=== PATIENT | female | born 1995 | race African-American/Black ===

== ENCOUNTER 2020-12-28 04:58 | Emergency (ER) | payer OTHER, SELFPAY ==
--- NOTE | ~2020-12-28 | CT_ITS ---
EXAMINATION: CT abdomen pelvis w con DATE: 12/28/2020 06:06 INDICATION: Abdominal pain. TECHNIQUE: Computed tomography (CT) of the abdomen and pelvis was performed with 100 mL Omnipaque-350 intravenous contrast. Automated exposure control and iterative reconstruction technique were employe d. The dose-length product was 183.13 mGy-cm. COMPARISON: None FINDINGS: Lung bases are clear. Heart size is normal. No pericardial or pleural effusion. Mild periportal edema . The liver. Gallbladder, spleen, pancreas, bilateral adrenal glands and left kidney are normal. Ther e is partially degraded right renal collecting system. Bladder is normal. Endometrial complex and the anteverted uterus measures 9 mm in thickness. 2.4 cm right adnexal cyst. Left adnexa is unremarkable . The appendix is not visualized. No pericecal inflammatory change to suggest acute appendicitis. No bowel obstruction. No free intraperitoneal gas or fluid. No pathologically enlarged abdominal or pelv ic lymphadenopathy. Mild lumbar dextrocurvature. IMPRESSION: 1. Nonspecific periportal edema. Liver which can be due to hepatitis, cholangitis, right heart failur e or secondary to cardiac congestion, overhydration/fluid resuscitation. Reviewed, dictated and finalized at location A. IMPRESSION: 1. Nonspecific periportal edema. Liver which can be due to hepatitis, cholangit is, right heart failure or secondary to cardiac congestion, overhydration/fluid resuscitation.
[2020-12-28 05:02] VITALS: BP 129/71; PULSE 95; RESP 16; TEMP 36.5; O2SAT 98
[2020-12-28] MEDS: SODIUM CHLORIDE 0.9% IV 1,000 ML 999 ML IV CONT (05:16)
[2020-12-28] MEDS: ONDANSETRON INJ 4 MG/2 ML VIAL IV PUSH (05:16)
[2020-12-28] MEDS: SODIUM CHLORIDE 0.9% IV 2,000 ML 999 ML IV CONT (05:17)
[2020-12-28 05:29] LABS: Basophils Percent Auto 0.6 % (0.2-1.2); Eosinophils Absolute Auto 0.4 K/mm3 (0-0.3); Eosinophils Percent Auto 6.7 % (0-4.4); Hemoglobin 11.4 g/dL (12.0-15.0); Immature Granulocyte Absolute 0.02 K/mm3 (0.00-0.031); Immature Granulocyte Percent A 0.3 % (0-0.5); Lymphocytes Absolute Auto 2.26 K/mm3 (0.9-3.2); Lymphocytes Percent Auto 34.2 % (18.3-44.2); Mean Corpuscular HGB Conc 32.6 g/dl (32-36); Mean Corpuscular Volume 89.1 fl (80-100); Mean Platelet Volume 10.5 fl (7.4-10.4); Monocytes Absolute Auto 0.4 K/mm3 (0.1-0.6); Monocytes Percent Auto 6.2 % (2.6-8.5); Neutrophils Absolute Auto 3.4 K/mm3 (1.3-6.7); Platelet Count Result 219 k/mm3 (150-375); Red Blood Count 3.93 M/mm3 (4.2-5.4); Red Cell Distribution Width 14.4 % (11.5-14.5); White Blood Count 6.6 K/mm3 (4.5-10.0)
[2020-12-28 05:41] LABS: Add Urine Microscopic? YES; Appearance Urine Cloudy (Clear); Bilirubin Urine Negative (Negative); Blood Urine Negative (Negative); Color Urine Yellow (Yellow); Glucose Urine UA Negative (Negative); Ketones Urine Negative (Negative); Leukocyte Esterase Ur Negative LEU/UL (Negative); Mucus Urine Few /lpf; Nitrate Urine Negative (Negative); Protein Urine 1+ mg/dL (Negative); RBC Urine 0-2 /hpf (0-2); Specific Grav Ur 1.027 (1.001-1.035); Squamous Epithelial Cell Urine Many /hpf (Few); Urobilinogen Urine Negative mg/dL (<2.0); WBC Urine 0-3 /hpf
[2020-12-28] MEDS: MORPHINE SULFATE (*CRX) 4 MG/ML INJ IV PUSH (05:47)
[2020-12-28 05:51] LABS: Alanine Aminotransferase 16 U/L (4-35); Albumin Level 5.1 g/dL (3.5-5.1); Alkaline Phosphatase 54 U/L (38-126); Anion Gap 11 mmol/L (8-16); Aspartate Amino Transferase 30 U/L (14-36); Bilirubin,Total 0.6 mg/dL (0.2-1.3); Blood Urea Nitrogen 16 mg/dL (7-17); Calcium 9.5 mg/dL (8.4-10.2); Carbon Dioxide 23 mmol/L (22-30); Chloride 106 mmol/L (98-107); Estimated CRCL calculation 92 ml/min; Estimated Glomerular Filt Rate > 60; Glucose 118 mg/dL (65-105); Lipase 66 U/L (23-300); Potassium 4.2 mmol/L (3.4-5.0); Sodium 140 mmol/L (137-145)
--- NOTE | 2020-12-28 05:57 | ED.GENADULT ---
HPI - General Adult General Chief complaint: Nausea/Vomiting/Diarrhea Stated complaint: n/v Time Seen by Provider: 12/28/20 05:09 Source: patient Mode of arrival: ambulatory Limitations: clinical condition History of Present Illness HPI narrative: Patient is 25 years old -Swiss female presents with lower abdominal spasms/cramps, decreased appetite, nausea and intermittent vomiting, chills started 2 days ago. Patient denies any fever, headache, respiratory symptoms, or close contact with anybody having similar symptoms. Patient denies history of abdominal surgery. Last menstrual. Few days ago. Patient denies any urinary symptoms, vaginal bleeding or discharge. History of asthma Related Data Allergies Allergy/AdvReac Type Severity Reaction Status Date / Time Sulfa (Sulfonamide Allergy Unknown Verified 12/28/20 05:11 Antibiotics) Review of Systems Review of Systems: Narrative: CONSTITUTIONAL: Denies fever, chills, or sweats. EYES: Denies visual changes, redness, or discharge. ENT: Denies rhinorrhea, congestion, sore throat, or otalgia. CARDIOVASCULAR: Denies chest pain, palpitations, or edema. RESPIRATORY: Denies cough or dyspnea. GASTROINTESTINAL: Denies abdominal pain, nausea, vomiting, or diarrhea. GENITOURINARY: Denies dysuria or hematuria. SKIN: Denies rash or itching. MUSCULOSKELETAL: Denies back pain, joint pain, or myalgia. NEUROLOGIC: Denies headache, numbness, or weakness. PSYCHIATRIC: Denies anxiety or depression. Exam Narrative: Exam Narrative: General appearance: Well-developed, well-nourished Skin: Normal color Head: Normocephalic, nontraumatic Eyes: Clear conjunctiva ENT: Oropharynx normal, ears normal, nose normal Neck: Supple, nontender Chest and respiratory: Airway patent, no respiratory distress, no accessory muscle use Heart: Regular rate/rhythm Abdomen: Soft, moderate tenderness right mid abdomen, no organomegaly, quiet bowel sounds Vascular: Normal peripheral pulses, normal capillary refill. Musculoskeletal: Normal range of motion, nontender back Neurologic: Alert and oriented ?3, [employer] is normal as tested, no gross motor deficit Course Course Emergency Course: Improving Vital Signs Vital signs: Vital Signs Temperature 36.5 C 12/28/20 05:02 Pulse Rate 95 12/28/20 05:02 Respiratory Rate 16 12/28/20 05:02 Blood Pressure 129/71 12/28/20 05:02 Pulse Oximetry 98 12/28/20 05:02 Temperature 36.5 C 12/28/20 05:02 Pulse Rate 95 12/28/20 05:02 Respiratory Rate 16 12/28/20 05:02 Blood Pressure 129/71 12/28/20 05:02 Pulse Oximetry 98 12/28/20 05:02 Medical Decision Making MDM Narrative Medical decision making narrative: Appendicitis, urinary tract infection, constipation, stress related, viral infection are my concern. Labs, IV fluid, CT abdomen pelvis with IV contrast ordered. Differential Diagnosis Differential Diagnosis: Appendicitis, viral infection, stress related symptoms, constipation, urinary tract infection Vital Signs Vital Signs: Vital Signs Temperature 36.5 C 12/28/20 05:02 Pulse Rate 95 12/28/20 05:02 Respiratory Rate 16 12/28/20 05:02 Blood Pressure 129/71 12/28/20 05:02 Pulse Oximetry 98 12/28/20 05:02 Temperature 36.5 C 12/28/20 05:02 Pulse Rate 95 12/28/20 05:02 Respiratory Rate 16 12/28/20 05:02 Blood Pressure 129/71 12/28/20 05:02 Pulse Oximetry 98 12/28/20 05:02 Lab Data Result diagrams: 12/28/20 05:12 12/28/20 05:11 Labs: Lab Results 12/28/20 12/28/20 12/28/20 Range/Units 05:11 05:12 05:15 WBC 6.6 (4.5-10.0) K/mm3 RBC 3.93 L (4.2-5.4) M/mm3 Hgb 11.4 L (12.0-
[2020-12-28 06:55] VITALS: BP 103/74; PULSE 78; RESP 18; O2SAT 98
== END 2020-12-28 07:05 | disposition home or self-care (01) ==
PROVIDERS: Emergency Provider Emergency Medicine; PCP Internal Medicine
DX: K52.9 Noninfective gastroenteritis and colitis, unspecified (principal); K59.00 Constipation, unspecified; N83.201 Unspecified ovarian cyst, right side
CPT/HCPCS: 36415; 74177; 80053; 81001; 81025; 83690; 85025; 96361; 96374; 96375; 99284; J2270; J2405; J7030; Q9967

== ENCOUNTER 2021-04-29 08:06 | Emergency (ER) | payer OTHER, SELFPAY ==
--- NOTE | ~2021-04-29 | US_ITS ---
EXAMINATION: US pelvic complete w TV DATE: 04/29/2021 11:09 INDICATION: Pelvic pain Comparison:No prior studies for comparison. TECHNIQUE: Multiple transabdominal and endovaginal sonographic images of the pelvis performed. FINDINGS: The uterus measures 7.1 x 3.2 x 5.1 cm. The endometrial complex measures 3 mm. The right ovary measures 2.5 x 2 x 2.2 cm and the left ovary measures 3.3 x 1.5 x 2.3 cm. There are small follicles in each ovary. Normal doppler signal in both ovaries. There is free fluid in the pelvis. There are no abnormal masses seen on either side. IMPRESSION: 1. Unremarkable pelvic ultrasound Reviewed, dictated and finalized at location A.
[2021-04-29 08:15] VITALS: BP 130/102; PULSE 90; RESP 18; TEMP 36.4; O2SAT 100
[2021-04-29] MEDS: ONDANSETRON INJ 4 MG/2 ML VIAL IV PUSH (08:39)
[2021-04-29] MEDS: KETOROLAC 15 MG/ML VIAL (*BKC) IV PUSH (08:39)
--- NOTE | 2021-04-29 08:56 | ED.FEMALEGU ---
HPI - Female Genitourinary General Chief complaint: Vaginal Bleeding Stated complaint: really bad period for 3 days Time Seen by Provider: 04/29/21 08:12 Source: patient and RN notes reviewed Mode of arrival: ambulatory Limitations: no limitations History of Present Illness HPI Narrative: This is a 25 year old female with history of fibromyalgia who presents for evaluation of painful menstrual cycle. She reports lower abdominal pain for 2 weeks. Her pain worsened 3 days ago when her menstrual cycle started. She has been taking Midol and naproxen for her pain. She was seen by her PCP yesterday . She states her menstrual cycle is not heavy today. She denies fever or chills. She is having nausea with dry heaves. She denies having abnormal vaginal discharge prior to starting her menstrual cycle. She reports history of similar pain in the past but it has been several month since it has been this bad. Related Data Home Medications Medication Instructions Recorded Confirmed albuterol sulfate INHALATION 04/29/21 divalproex PO 04/29/21 fluticasone propionate [Flovent INHALATION 04/29/21 HFA] montelukast mg 04/29/21 sertraline mg 04/29/21 Allergies Allergy/AdvReac Type Severity Reaction Status Date / Time amoxicillin Allergy Hives Verified 04/29/21 08:18 Sulfa (Sulfonamide Allergy Hives Verified 04/29/21 08:18 Antibiotics) Review of Systems Review of Systems: All systems reviewed & are unremarkable except as noted in HPI and below PMFSH Past Medical History Medical History (Updated 04/29/21 @ 13:34 by Jasmyn Steele MD) Anxiety Surgical History Surgical History (Updated 04/29/21 @ 13:31 by Jasmyn Steele MD) No pertinent past surgical history Social History Social History (Updated 04/29/21 @ 13:31 by Jasmyn Steele MD) Smoking status: Never smoker Gender identity (if verbalized by the patient): Female Exam Const: General: alert Orientation/consciousness: patient oriented x3 Other: in moderate pain Eyes: EOM: EOMs intact bilaterally Chest: Chest palpation & inspection: normal inspection of the chest Resp: Effort & Inspection: normal respiratory effort and no retractions Auscultation: clear to auscultation bilaterally Cardio: Rate: regular rate Rhythm: regular rhythm Heart sounds: no murmurs GI: GI Palp: Yes Soft to palpation, Yes Tenderness to palpation present (GI) (suprapubic), No Guarding due to palpation present (GI) and No Rigid due to palpation Auscultation: normal bowel sounds : Speculum Exam - Cervix: Cervical os closed Skin: General skin exam: normal color Neuro: General: patient oriented x3, moves all extremities and CN's II-XI intact bilaterally Psych: Mental Status: mental status grossly normal Affect: normal affect Course Reevaluation(s) Reevaluation #1: Patient reports she feels better. Labs are unremarkable. She states she has been dealing with this for years. She has never had evaluation of endometriosis. Date: 04/29/21 Time: 13:32 Vital Signs Vital signs: Vital Signs Temperature 97.6 F 04/29/21 08:15 Pulse Rate 90 04/29/21 08:15 Respiratory Rate 18 04/29/21 08:15 Blood Pressure 130/102 H 04/29/21 08:15 Pulse Oximetry 100 04/29/21 08:15 Temperature 97.6 F 04/29/21 08:15 Pulse Rate 90 04/29/21 14:04 Respiratory Rate 18 04/29/21 14:04 Blood Pressure 122/71 04/29/21 14:04 Pulse Oximetry 100 04/29/21 14:04 MDM - Female Genitourinary Lab Data Attestation: I reviewed the patient's lab results. Result diagrams: 04/29/21 08:38 04/29/21 08:38 Labs: Lab Results 04/29/21 04/29/21 04/29/21 Range/Units 08:38 08:38 11:16 WBC 5.7 (4.5-10.0) K/mm3 RBC 3.88 L (4.2-5.4) M/mm3 Hgb 10.9 L (12.0-15.0) g/dL Hct 34.6 L (37.0-47.0) % MCV 89.2 (80-100) fl MCH 28.1 (26-34) pg MCHC 31.5 L (32-36) g/dl RDW 13.8 (11.5-14.5)
[2021-04-29 09:01] LABS: Basophils Percent Auto 0.7 % (0.2-1.2); Eosinophils Absolute Auto 0.4 K/mm3 (0-0.3); Eosinophils Percent Auto 6.3 % (0-4.4); Hematocrit 34.6 % (37.0-47.0); Hemoglobin 10.9 g/dL (12.0-15.0); Immature Granulocyte Absolute 0.02 K/mm3 (0.00-0.031); Immature Granulocyte Percent A 0.4 % (0-0.5); Lymphocytes Percent Auto 31.5 % (18.3-44.2); Mean Corpuscular HGB Conc 31.5 g/dl (32-36); Mean Corpuscular Hemoglobin 28.1 pg (26-34); Mean Corpuscular Volume 89.2 fl (80-100); Mean Platelet Volume 10.2 fl (7.4-10.4); Monocytes Absolute Auto 0.3 K/mm3 (0.1-0.6); Neutrophils Absolute Auto 3.2 K/mm3 (1.3-6.7); Neutrophils Percent Auto 55.1 % (45.5-73.1); Platelet Count Result 254 k/mm3 (150-375); Red Blood Count 3.88 M/mm3 (4.2-5.4); Red Cell Distribution Width 13.8 % (11.5-14.5); White Blood Count 5.7 K/mm3 (4.5-10.0)
[2021-04-29 09:14] LABS: Alanine Aminotransferase 18 U/L (4-35); Albumin Level 4.8 g/dL (3.5-5.1); Alkaline Phosphatase 58 U/L (38-126); Anion Gap 13 mmol/L (8-16); Aspartate Amino Transferase 26 U/L (14-36); Bilirubin,Total 0.3 mg/dL (0.2-1.3); Blood Urea Nitrogen 16 mg/dL (7-17); Calcium 9.8 mg/dL (8.4-10.2); Carbon Dioxide 21 mmol/L (22-30); Chloride 105 mmol/L (98-107); Estimated CRCL calculation 91 ml/min; Estimated Glomerular Filt Rate > 60; Glucose 81 mg/dL (65-110); Potassium 4.4 mmol/L (3.4-5.0); Sodium 139 mmol/L (137-145)
[2021-04-29 11:15] VITALS: BP 107/56; PULSE 76; RESP 20; O2SAT 100
[2021-04-29] MEDS: MORPHINE SULFATE (*CRX) 4 MG/ML INJ IV PUSH (12:25)
[2021-04-29 13:16] VITALS: BP 116/70; PULSE 87; RESP 16; O2SAT 100
[2021-04-29 14:04] VITALS: BP 122/71; PULSE 90; RESP 18; O2SAT 100
== END 2021-04-29 14:09 | disposition home or self-care (01) ==
PROVIDERS: Emergency Provider General Practice; PCP Internal Medicine
DX: N94.6 Dysmenorrhea, unspecified (principal); F41.9 Anxiety disorder, unspecified
CPT/HCPCS: 36415; 76830; 76856; 80053; 81025; 85025; 87070; 87491; 87591; 87808; 96365; 96375; 99284; J0131; J1885; J2270; J2405

== ENCOUNTER 2021-10-13 14:38 | Emergency (ER) | payer OTHER, SELFPAY ==
[2021-10-13 14:45] VITALS: BP 130/90; PULSE 86; RESP 16; TEMP 36.6; O2SAT 100
--- NOTE | 2021-10-13 17:35 | ED.GENADULT ---
HPI - General Adult General Chief complaint: Unspecified Stated complaint: headache, body aches Time Seen by Provider: 10/13/21 15:12 Source: patient Mode of arrival: ambulatory Limitations: no limitations History of Present Illness HPI narrative: Patient is a 26-year-old female with chief complaint of headache, fatigue, body aches, dry cough for the past 5 days. Patient is unvaccinated against COVID. Patient reports that she had a virtual visit with her primary care when her symptoms began and was prescribed cough medication with codeine as the coughing was irritating her asthma. Patient reports that she does have her rescue inhaler and has not had to use it frequently but has used it as needed. Patient denies having frequent wheezing or shortness of breath. Patient reports she would like another cough medication option that does not make her sleepy. Patient states that her primary care assumed that she had influenza but was not sure. She is not sure if she has had any COVID contacts. Patient denies chest pain, shortness of breath, neurological changes. Related Data Home Medications Medication Instructions Recorded Confirmed albuterol sulfate INHALATION 04/29/21 divalproex PO 04/29/21 fluticasone propionate [Flovent INHALATION 04/29/21 HFA] montelukast mg 04/29/21 sertraline mg 04/29/21 Allergies Allergy/AdvReac Type Severity Reaction Status Date / Time amoxicillin Allergy Hives Verified 04/29/21 08:18 Sulfa (Sulfonamide Allergy Hives Verified 04/29/21 08:18 Antibiotics) Review of Systems Review of Systems: CONSTITUTIONAL: Reports body aches denies fever, chills, or sweats. EYES: Denies visual changes, redness, or discharge. ENT: Reports rhinorrhea, congestion, sore throat, or otalgia. CARDIOVASCULAR: Denies chest pain, palpitations, or edema. RESPIRATORY: Reports cough denies dyspnea. GASTROINTESTINAL: Denies abdominal pain, nausea, vomiting, or diarrhea. GENITOURINARY: Denies dysuria or hematuria. SKIN: Denies rash or itching. MUSCULOSKELETAL: Reports back pain, denies joint pain, or myalgia. NEUROLOGIC: Reports headache, denies numbness, dizziness, or weakness. PSYCHIATRIC: Denies anxiety or depression. [facility] Past Medical History Medical History (Updated 10/13/21 @ 15:59 by Regina Pena PA-C) Anxiety Surgical History Surgical History (Updated 04/29/21 @ 13:31 by Jasmyn Steele MD) No pertinent past surgical history Social History Social History (Updated 04/29/21 @ 13:31 by Jasmyn Steele MD) Smoking status: Never smoker Gender identity (if verbalized by the patient): Female Exam Narrative: GENERAL: Well-appearing, well-nourished, and in no acute distress. HEAD: Normocephalic, atraumatic. EYES: PERRLA and EOMI. ENT: Nares clear, no rhinorrhea or epistaxis. Mucous membranes moist. Oropharynx without tonsillar hypertrophy exudate or other lesions. Bilateral TMs pearly ozuna nonbulging. NECK: Supple. Range of motion intact. CHEST: Clear to auscultation. No respiratory distress. No wheezes rales or rhonchi. No tachypnea. speaking in clear sentences without difficulty. HEART: Regular rate and rhythm. EXTREMITIES: Normal range of motion. No edema. SKIN: Warm, dry, no rash. NEURO: No focal deficits. Alert and oriented x3. PSYCH: Normal mood and affect. Course Vital Signs Vital signs: Vital Signs Temperature 98 F 10/13/21 14:45 Pulse Rate 86 10/13/21 14:45 Respiratory Rate 16 10/13/21 14:45 Blood Pressure 130/90 10/13/21 14:45 Pulse Oximetry 100 10/13/21 14:45 Temperature 98 F 10/13/21 14:45 Pulse Rate 86 10/13/21 14:45 Respiratory Rate 16 10/13/21 14:45 Blood Pressure 130/90 10/13/21 14:45 Pulse Oximetry 100 10/13/21 14:45 Medical Decision Making [facility] Narrative Medical decision making narrative: Patient influenza test negative. Patient vitals are stable. Patient not hypoxic or toxic. Patient examined dry cough nonpr
[2021-10-15 18:18] LABS: SARS-CoV-2 RNA PCR Negative
== END 2021-10-13 16:49 | disposition home or self-care (01) ==
LOC: ANHED 16:45
PROVIDERS: Physician Assistant; Emergency Provider Emergency Medicine; PCP Internal Medicine
DX: R51.9 Headache, unspecified (principal); R05.9 Cough, unspecified; R53.83 Other fatigue; Z20.822 Contact with and (suspected) exposure to COVID-19; J45.909 Unspecified asthma, uncomplicated; F41.9 Anxiety disorder, unspecified
CPT/HCPCS: 87804; 99283; C9803; U0003; U0005

== ENCOUNTER 2022-05-29 11:20 | Emergency (ER) | payer OTHER, SELFPAY ==
--- NOTE | ~2022-05-29 | CT_ITS ---
EXAMINATION: CT lumbar spine wo con DATE: 05/29/2022 13:35 INDICATION: Low back pain radiating down the lower extremities. TECHNIQUE: Computed tomography (CT) of the lumbar spine was performed without intravenous contrast. A utomated exposure control and iterative reconstruction technique were employed. The dose-length produ ct was 156.14 mGy-cm. COMPARISON: None FINDINGS: There is 12 degrees dextroscoliosis of lumbar spine. Vertebral body heights are normal. The re is mildly decreased disc height at L3-L4 and L4-L5. The following disc levels are specifically dis cussed: L1-L2: The disc does not extend beyond the endplate margin. There is mild bilateral facet joint osteo arthritis. There is no neural foraminal stenosis. There is no central canal stenosis. L2-L3: The disc is bulging. There is mild bilateral facet joint osteoarthritis. There is no neural fo raminal stenosis. There is mild central canal stenosis. L3-L4: The disc is bulging. There is mild bilateral facet joint osteoarthritis. There is mild bilater al neural foraminal stenosis. There is mild central canal stenosis. L4-L5: The disc is bulging. There is no facet joint osteoarthritis. There is mild bilateral neural fo raminal stenosis. There is mild central canal stenosis. L5-S1: The disc is bulging. There is mild bilateral facet joint osteoarthritis. There is mild left ne ural foraminal stenosis. There is mild central canal stenosis. IMPRESSION: 1. Mild lumbar spondylosis. 2. Lumbar dextroscoliosis. Reviewed, dictated and finalized at location A.
[2022-05-29 11:22] VITALS: BP 121/63; PULSE 110; RESP 16; TEMP 37.3; O2SAT 100
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
[2022-05-29] MEDS: ONDANSETRON INJ 4 MG/2 ML VIAL IV PUSH (13:05)
[2022-05-29] MEDS: HYDROmorphone HCL INJ (*CRX) 1 MG/ML SYR 0.5 MG IV PUSH (13:09)
[2022-05-29] MEDS: KETOROLAC 30 MG/ML VIAL (*BKC) IV PUSH (13:09)
[2022-05-29 13:29] LABS: Basophils Percent Auto 0.2 % (0.2-1.2); Eosinophils Absolute Auto 0.1 K/mm3 (0-0.3); Eosinophils Percent Auto 1.1 % (0-4.4); Hematocrit 30.5 % (37.0-47.0); Hemoglobin 9.6 g/dL (12.0-15.0); Immature Granulocyte Absolute 0.03 K/mm3 (0.00-0.031); Immature Granulocyte Percent A 0.5 % (0-0.5); Lymphocytes Absolute Auto 0.22 K/mm3 (0.9-3.2); Mean Corpuscular HGB Conc 31.5 g/dl (32-36); Mean Corpuscular Volume 85.7 fl (80-100); Mean Platelet Volume 10.2 fl (7.4-10.4); Monocytes Absolute Auto 0.4 K/mm3 (0.1-0.6); Monocytes Percent Auto 6.4 % (2.6-8.5); Neutrophils Absolute Auto 4.8 K/mm3 (1.3-6.7); Neutrophils Percent Auto 87.8 % (45.5-73.1); Platelet Count Result 178 k/mm3 (150-375); Red Blood Count 3.56 M/mm3 (4.2-5.4); Red Cell Distribution Width 14.9 % (11.5-14.5); White Blood Count 5.5 K/mm3 (4.5-10.0)
[2022-05-29 13:38] LABS: Appearance Urine Slightly Cloudy (Clear); Bilirubin Urine 1+ (Negative); Blood Urine Negative (Negative); Color Urine Amber (Yellow); Glucose Urine UA Negative (Negative); Ketones Urine 1+ mg/dL (Negative); Leukocyte Esterase Ur Negative LEU/UL (Negative); Nitrate Urine Negative (Negative); Protein Urine Trace mg/dL (Negative); pH Urine 6.5 (5.0-9.0)
[2022-05-29 13:41] LABS: Alanine Aminotransferase 13 U/L (6-35); Albumin Level 4.6 g/dL (3.5-5.1); Alkaline Phosphatase 69 U/L (38-126); Anion Gap 6 mmol/L (8-16); Aspartate Amino Transferase 24 U/L (14-36); Bilirubin,Total 0.3 mg/dL (0.2-1.3); Blood Urea Nitrogen 8 mg/dL (7-17); Calcium 8.9 mg/dL (8.4-10.2); Carbon Dioxide 22 mmol/L (22-30); Chloride 106 mmol/L (98-107); Creatine Kinase 87 U/L (30-135); Estimated CRCL calculation 96 ml/min; Estimated Glomerular Filt Rate > 60; Glucose 84 mg/dL (65-110); Potassium 3.6 mmol/L (3.4-5.0); Sodium 134 mmol/L (137-145)
[2022-05-29 13:53] LABS: Mucus Urine Heavy /lpf; RBC Urine 0-2 /hpf (0-2); Squamous Epithelial Cell Urine Few /hpf (Few); WBC Urine 0-3 /hpf
[2022-05-29 13:55] LABS: Hypochromasia 2+ (NORMAL); Platelet Estimate Adequate (Adequate)
[2022-05-29 14:07] LABS: Add Urine Microscopic? YES
[2022-05-29 14:23] LABS: Erythrocyte Sedimentation Rate 18 mm/hr (0-20)
== END 2022-05-29 14:30 | disposition home or self-care (01) ==
PROVIDERS: Emergency Provider Emergency Medicine; PCP Internal Medicine
DX: M54.16 Radiculopathy, lumbar region (principal); M79.7 Fibromyalgia; F41.9 Anxiety disorder, unspecified; M47.816 Spondylosis without myelopathy or radiculopathy, lumbar region
CPT/HCPCS: 36415; 72131; 80053; 81001; 81025; 82550; 85025; 85652; 96374; 96375; 99284; J1100; J1170; J1885; J2405

== ENCOUNTER 2022-11-27 21:03 | Emergency (ER) | payer OTHER, SELFPAY ==
--- NOTE | ~2022-11-27 | XR_ITS ---
EXAMINATION: XR chest 2V Exam Date/Time: 11/27/2022 21:19 PROGRAM ADMIN HISTORY: Generalized chest pain x 3 days. no cardiac hx Comparison: None available. RESULT: Lines, tubes, and devices: None. Lungs and pleura: Clear. Cardiomediastinal silhouette: Normal. Other: No acute osseous or upper abdominal finding. IMPRESSION: No acute cardiopulmonary process. Reviewed, dictated and finalized at location K. RAM ADMIN
--- NOTE | ~2022-11-27 | CT_ITS ---
CT Scan of the Chest without Contrast: Clinical Indication: Chest pain Technique: Contiguous sections were acquired throughout the chest without intravenous contrast. Dose reduction technique was used on this scan by utilizing automated exposure control and iterative recon struction technique. The dose-length product (DLP) was 128.65 mGy-cm. Findings: There is no evidence of any significant mediastinal, hilar or axillary lymphadenopathy. The mediastin al soft tissues appear normal. There is no evidence of pleural or pericardial effusion. The lungs are clear. No pulmonary nodules or infiltrates are noted. Images through the upper abdomen reveal no abnormalities. Impression: No significant abnormalities seen. Reviewed, dictated and finalized at location . [facility] Impression: No significant abnormalities seen.
--- NOTE | 2022-11-27 21:04 | ECG_ITS ---
Measurements Intervals [place] Rate: 90 P: 76 GA: 189 QRS: 74 QRSD: 82 T: 61 QT: 335 QTc: 411 Interpretive Statements SINUS RHYTHM POSSIBLE LEFT ATRIAL ENLARGEMENT [-0.1mV P WAVE IN V1/V2] POSSIBLE RIGHT VENTRICULAR CONDUCTION DELAY [RSR (QR) IN V1/V2] NO PREVIOUS ECG AVAILABLE FOR COMPARISON Electronically Signed On 11-28-2022 11:34:21 MATHEMATICAL SCIENTIST by Regan Yi M.D.
[2022-11-27 21:05] VITALS: BP 111/77; PULSE 100; RESP 19; TEMP 36.3; O2SAT 100
[2022-11-27 21:25] LABS: Basophils Percent Auto 0.2 % (0.2-1.2); Hematocrit 33.1 % (37.0-47.0); Hemoglobin 10.6 g/dL (12.0-15.0); Immature Granulocyte Absolute 0.05 K/mm3 (0.00-0.031); Immature Granulocyte Percent A 0.5 % (0-0.5); Lymphocytes Absolute Auto 1.07 K/mm3 (0.9-3.2); Lymphocytes Percent Auto 10.4 % (18.3-44.2); Mean Corpuscular Hemoglobin 27.5 pg (26-34); Mean Platelet Volume 9.3 fl (7.4-10.4); Monocytes Absolute Auto 0.3 K/mm3 (0.1-0.6); Monocytes Percent Auto 3.2 % (2.6-8.5); Neutrophils Absolute Auto 8.8 K/mm3 (1.3-6.7); Neutrophils Percent Auto 85.7 % (45.5-73.1); Platelet Count Result 238 k/mm3 (150-375); Red Blood Count 3.85 M/mm3 (4.2-5.4); Red Cell Distribution Width 15.2 % (11.5-14.5); White Blood Count 10.3 K/mm3 (4.5-10.0)
[2022-11-27 21:36] LABS: Alanine Aminotransferase 19 U/L (6-35); Albumin Level 4.7 g/dL (3.5-5.1); Alkaline Phosphatase 63 U/L (38-126); Anion Gap 9 mmol/L (8-16); Aspartate Amino Transferase 21 U/L (14-36); Bilirubin,Total 0.3 mg/dL (0.2-1.3); Blood Urea Nitrogen 11 mg/dL (7-17); Carbon Dioxide 24 mmol/L (22-30); Chloride 106 mmol/L (98-107); Estimated CRCL calculation 112 ml/min; Estimated Glomerular Filt Rate > 60; Glucose 128 mg/dL (65-110); Lipase 57 U/L (23-300); Potassium 3.6 mmol/L (3.4-5.0); Sodium 139 mmol/L (137-145)
[2022-11-27 21:37] LABS: INR 1.1; Prothrombin Time 13.6 Seconds (11.1-14.7)
[2022-11-27 21:38] LABS: Partial Thromboplastin Time 26.7 SECONDS (22.3-36.8)
[2022-11-27 21:48] LABS: Troponin I < 0.012 ng/mL (0.000-0.034)
[2022-11-27 22:00] VITALS: PULSE 91; RESP 14; O2SAT 100
[2022-11-27] MEDS: KETOROLAC 15 MG/ML VIAL (*BKC) IV PUSH (23:25)
[2022-11-27 23:26] VITALS: BP 121/76; PULSE 80; RESP 17; O2SAT 100
--- NOTE | 2022-11-27 23:38 | ED.CHESTPAIN ---
HPI - Chest Pain General Chief Complaint: Chest Pain Stated Complaint: chest pain Time Seen by Provider: 11/27/22 22:47 Source: patient and RN notes reviewed Mode of arrival: ambulatory Limitations: no limitations History of Present Illness HPI narrative: This is a 27 year old female with history of asthma who presents for evaluation of chest pain. 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 She developed cold like symptoms 1 week ago . She reports cough, body aches, congestion and headache. She also noticed chest soreness and chest pain when she coughs or moves. She was seen by an provider and she was prescribed steroids with azithromycin. She also been using her inhaler even though she has not been wheezing. She describes her chest pain aching pain. She also reports feeling sob. She denies history of DVT/PE, leg swelling or calf pain. She denies taking control. She states she does not feel better so she came to ER. Related Data Home Medications Medication Instructions Recorded Confirmed albuterol sulfate 90 mcg/actuation inhalation 04/29/21 aerosol inhaler divalproex 250 mg tablet,delayed PO 04/29/21 release fluticasone propionate 44 inhalation 04/29/21 mcg/actuation HFA aerosol inhaler (Flovent HFA) montelukast 10 mg tablet mg 04/29/21 sertraline 50 mg tablet mg 04/29/21 Allergies Allergy/AdvReac Type Severity Reaction Status Date / Time amoxicillin Allergy Hives Verified 05/29/22 11:21 Sulfa (Sulfonamide Allergy Hives Verified 05/29/22 11:21 Antibiotics) Review of Systems Constitutional: Constitutional: Denies weakness ENT: Reports nasal congestion Cardiovascular: Cardiovascular: Reports chest pain, Denies syncope, Denies rapid heart rate, Denies irregular heart rhythm, Denies leg edema and Reports dyspnea Respiratory: Respiratory: Denies chest congestion, Reports cough, Denies hemoptysis, Denies excessive phlegm production and Reports dyspnea Gastrointestinal: Gastrointestinal: Denies abdominal pain, Denies hematochezia, Denies diarrhea and Denies vomiting Genitourinary: Genitourinary: Denies hematuria and Denies dysuria Musculoskeletal: Musculoskeletal: Denies joint swelling, Denies loss of height and Denies muscle weakness Neurologic: Denies syncope, Reports headache(s), Denies focal weakness and Denies weakness PMFSH Past Medical History Medical History Anxiety Surgical History Surgical History No pertinent past surgical history Social History Social History Smoking status: Never smoker Gender identity (if verbalized by the patient): Female Exam Const: General: no acute distress and alert Nutritional Appearance: well nourished Orientation/consciousness: patient oriented x3 Limitations: no limitations HENMT: Head: normal to inspection Face and sinus: normal facial exam Mouth: Yes Normal oral and palatal mucosa present Eyes: EOM: EOMs intact bilaterally Neck: Neck: normal visual inspection Chest: Chest palpation & inspection: tenderness Resp: Effort & Inspection: normal respiratory effort Auscultation: clear to auscultation bilaterally Cardio: Rate: regular rate Rhythm: regular rhythm Heart sounds: no murmurs GI: GI Palp: Yes Soft to palpation, No Tenderness to palpation present (GI), No Guarding due to palpation present (GI) and No Rigid due to palpation Auscultation: normal bowel sounds Back/Spine/Pelvis: Back: no CVA tenderness Skin: General skin exam: normal color Rashes: no rashes Wounds: no wounds Neuro: General: patient oriented x3, moves all extremities and CN's II-XI intact bilaterally Extrem: General: normal to inspection Psych: Mental Status: mental status grossly normal Affect: normal affect Attitude: cooperative Course Reevaluation(s
[2022-11-28 00:01] LABS: D Dimer 0.27 ug/mL (<0.48)
[2022-11-28] MEDS: KETOROLAC 15 MG/ML VIAL (*BKC) IV PUSH (00:23)
[2022-11-28 00:48] LABS: Troponin I < 0.012 ng/mL (0.000-0.034)
[2022-11-28 01:06] VITALS: PULSE 83; RESP 17; O2SAT 100
--- NOTE | 2022-11-28 01:06 | PC.NURSE ---
This RN entered room to reassess pain. Pt states medication has not helped her pain, rates /. Pt states I just want to go home if that's all shes going to give me . MAURILIO Steele notified.
[2022-11-28] MEDS: MORPHINE SULFATE (*CRX) 4 MG/ML INJ IV PUSH (02:44)
[2022-11-28 02:45] VITALS: PULSE 82; RESP 12; O2SAT 100
[2022-11-28 04:09] VITALS: BP 131/77; PULSE 83; RESP 19; O2SAT 100
== END 2022-11-28 04:10 | disposition home or self-care (01) ==
PROVIDERS: Emergency Provider General Practice; PCP Internal Medicine
DX: J06.9 Acute upper respiratory infection, unspecified (principal); M94.0 Chondrocostal junction syndrome [Tietze]; F41.9 Anxiety disorder, unspecified
CPT/HCPCS: 36415; 71046; 71250; 80053; 83690; 84484; 85025; 85380; 85610; 85730; 93005; 96374; 96375; 99284; J1885; J2270

== ENCOUNTER 2023-04-19 13:44 | Emergency (ER) | payer OTHER, SELFPAY ==
[2023-04-19] VITALS (21 sets, daily range): BP systolic 104–122; BP diastolic 80–85; PULSE 86–99; RESP 18–20; TEMP 36.6; O2SAT 100
--- NOTE | ~2023-04-19 | XR_ITS ---
EXAMINATION: XR chest 1V portable Exam Date/Time: 04/19/2023 18:20 CDT HISTORY: follow up CT, left lower lobe nodule Comparison: 11/27/2022. RESULT: Lines, tubes, and devices: None. Lungs and pleura: Subtle nodular opacity in the left lower lung, likely corresponding to the CT prov en pulmonary nodule but less well seen. Cardiomediastinal silhouette: Stable. Other: No acute osseous or upper abdominal finding. IMPRESSION: No acute cardiopulmonary process. The infectious/inflammatory nodular opacity seen in the prior CT is not particularly well visualized radiographically, it would be difficult to confirm resolution radio graphically. Reviewed, dictated and finalized at location K. IMPRESSION: No acute cardiopulmonary process. The infectious/inflammatory nodular opacity s een in the prior CT is not particularly well visualized radiographically, it wo uld be difficult to confirm resolution radiographically.
--- NOTE | ~2023-04-19 | CT_ITS ---
EXAMINATION: CT abdomen pelvis w con DATE: 04/19/2023 17:55 INDICATION: bilateral flank pain, recent UTI TECHNIQUE: Computed tomography (CT) of the abdomen and pelvis was performed with 100 mL Omnipaque-350 intravenous contrast. Automated exposure control and iterative reconstruction technique were employe d. The dose-length product was 190.82 mGy-cm. COMPARISON: 12/28/2020; CT chest 11/20/2022. FINDINGS: Lower thorax: 9 mm irregular, somewhat spiculated appearing left lower lobe nodule Liver: Normal. Biliary/Gallbladder: Gallbladder is normal. No bile duct dilation. Pancreas: No mass or duct dilation. Spleen: Normal. Adrenals:No mass. Kidneys: Right upper pole AML. Symmetric renal enhancement. No perinephric stranding. No suspicious m ass, stone, or hydronephrosis. Mid and distal ureters are very difficult to trace. GI tract: Mild distal esophageal and gastric wall edema No small or large bowel dilation. The appendi x is poorly visualized, obscured by adjacent bowel and the paucity of abdominal fat. Mesentery/Peritoneum: No ascites, mass, or free air. Retroperitoneum: No mass. Pelvis: Moderate urinary bladder wall edema. Soft Tissues: Soft tissues and body wall unremarkable. Bones: No acute osseous finding. IMPRESSION: New, 9 mm left lower lobe pulmonary nodule, likely infectious inflammatory. Moderate-severe cystitis. Reviewed, dictated and finalized at location K.
[2023-04-19 14:22] LABS: Basophils Percent Auto 0.6 % (0.2-1.2); Eosinophils Absolute Auto 0.2 K/mm3 (0-0.3); Eosinophils Percent Auto 3.8 % (0-4.4); Hemoglobin 10.4 g/dL (12.0-15.0); Immature Granulocyte Absolute 0.01 K/mm3 (0.00-0.031); Immature Granulocyte Percent A 0.2 % (0-0.5); Lymphocytes Percent Auto 24.9 % (18.3-44.2); Mean Corpuscular HGB Conc 30.6 g/dl (32-36); Mean Corpuscular Hemoglobin 26.5 pg (26-34); Mean Corpuscular Volume 86.5 fl (80-100); Mean Platelet Volume 9.4 fl (7.4-10.4); Monocytes Absolute Auto 0.4 K/mm3 (0.1-0.6); Monocytes Percent Auto 7.7 % (2.6-8.5); Neutrophils Absolute Auto 3.3 K/mm3 (1.3-6.7); Neutrophils Percent Auto 62.8 % (45.5-73.1); Platelet Count Result 287 k/mm3 (150-375); Red Blood Count 3.93 M/mm3 (4.2-5.4); Red Cell Distribution Width 16.2 % (11.5-14.5); White Blood Count 5.2 K/mm3 (4.5-10.0)
[2023-04-19 16:05] LABS: Appearance Urine Turbid (Clear); Bacteria Urine None Seen /hpf; Bilirubin Urine Negative (Negative); Blood Urine 3+ (Negative); Color Urine Dark Yellow (Yellow); Glucose Urine UA Negative (Negative); Ketones Urine Negative (Negative); Leukocyte Esterase Ur 2+ LEU/UL (Negative); Nitrate Urine Negative (Negative); Non Pathogenic Casts 0-2; Protein Urine 2+ mg/dL (Negative); RBC Urine >100 /hpf (0-2); Specific Grav Ur 1.017 (1.001-1.035); Squamous Epithelial Cell Urine Occasional /hpf (Few); WBC Urine >100 /hpf
--- NOTE | 2023-04-19 16:09 | ED.FEMALEGU ---
HPI - Female Genitourinary General Chief complaint: Urogenital-Female Stated complaint: hematuria, lower back pain Time Seen by Provider: 04/19/23 15:08 Source: patient Mode of arrival: ambulatory Limitations: no limitations History of Present Illness HPI Narrative: This is a 27-year-old female who presents to the ED with chief complaint of suprapubic pain and bilateral low back pain onset 1 week ago. She was seen by urgent care 4 days ago and given a prescription for Macrobid for UTI. She states she has taken 4 doses. She is now having increased pain to her lower abdomen and back. She also reports blood in the urine today. Denies fevers, chills, nausea, vomiting. States her last normal menstrual period ended 2 days ago. Denies any concern for STDs and denies vaginal discharge. Related Data Home Medications Medication Instructions Recorded Confirmed albuterol sulfate 90 mcg/actuation inhalation 04/29/21 aerosol inhaler divalproex 250 mg tablet,delayed PO 04/29/21 release fluticasone propionate 44 inhalation 04/29/21 mcg/actuation HFA aerosol inhaler (Flovent HFA) montelukast 10 mg tablet mg 04/29/21 sertraline 50 mg tablet mg 04/29/21 Allergies Allergy/AdvReac Type Severity Reaction Status Date / Time amoxicillin Allergy Hives Verified 05/29/22 11:21 Sulfa (Sulfonamide Allergy Hives Verified 05/29/22 11:21 Antibiotics) [facility] Past Medical History Medical History Anxiety Surgical History Surgical History No pertinent past surgical history Social History Social History Smoking status: Never smoker Gender identity (if verbalized by the patient): Female Exam Narrative: GENERAL: Appears in pain. HEAD: Normocephalic, atraumatic. EYES: PERRLA and EOMI. ENT: Nares clear, no rhinorrhea or epistaxis. Mucous membranes moist. Oropharynx without tonsillar hypertrophy exudate or other lesions. NECK: Supple. No adenopathy or masses. CHEST: No respiratory distress. Clear to auscultation. No wheezes rales or rhonchi HEART: Regular rate and rhythm. No murmur heard. Normal peripheral pulses. ABDOMEN: Bilateral flank pain, worse on the left. Moderate suprapubic tenderness present. Soft, nondistended, normal active bowel sounds. MSK: Normal range of motion. No edema. SKIN: Warm, dry, no rash. NEURO: Alert and oriented x3. No focal deficits. PSYCH: Normal mood and affect. Course Vital Signs Vital signs: Vital Signs Temperature 97.9 F 04/19/23 13:58 Pulse Rate 99 04/19/23 13:58 Respiratory Rate 20 04/19/23 13:58 Blood Pressure 122/81 04/19/23 13:58 Pulse Oximetry 100 04/19/23 13:58 Oxygen Delivery Room Air 04/19/23 13:58 Temperature 97.9 F 04/19/23 13:58 Pulse Rate 86 04/19/23 15:18 Respiratory Rate 18 04/19/23 15:18 Blood Pressure 104/80 04/19/23 16:01 Pulse Oximetry 100 04/19/23 18:01 Oxygen Delivery Room Air 04/19/23 15:18 MDM - Female Genitourinary MDM Narrative Medical decision making narrative: This is a 27-year-old female who presents to the ED with chief complaint of suprapubic and bilateral lower back pain for the past couple of days. Vitals are normal. Afebrile. Minimal flank tenderness. Lab work shows normal white count. CMP unremarkable. UA shows evidence of infection with leukocytes, blood, white cells. CT scan was ordered to rule out stone and to evaluate for possible pyelonephritis. They note marked bladder wall edema but no other acute findings. Incidental finding of a left lower lobe 9 mm nodule presumed inflammatory/infectious. X-ray was ordered to rule out fulminant pneumonia and this is negative. Patient will be discharged stable condition. Her pain was controlled here in the ED. Prescription for ciprofloxacin and Reglan given. Instructe
[2023-04-19 16:10] LABS: Add Urine Microscopic? YES
[2023-04-19] MEDS: ONDANSETRON INJ 4 MG/2 ML VIAL IV PUSH (16:25)
[2023-04-19] MEDS: MORPHINE SULFATE (*CRX) 4 MG/ML INJ IV PUSH (16:25)
[2023-04-19 17:45] LABS: Estimated CRCL calculation 94 ml/min; Estimated Glomerular Filt Rate > 60
[2023-04-19 17:45] LABS: Alanine Aminotransferase 28 U/L (6-35); Albumin Level 4.3 g/dL (3.5-5.1); Alkaline Phosphatase 74 U/L (38-126); Anion Gap 11 mmol/L (8-16); Aspartate Amino Transferase 34 U/L (14-36); Bilirubin,Total 0.3 mg/dL (0.2-1.3); Blood Urea Nitrogen 12 mg/dL (7-17); Calcium 9.3 mg/dL (8.4-10.2); Carbon Dioxide 22 mmol/L (22-30); Chloride 104 mmol/L (98-107); Estimated CRCL calculation 110 ml/min; Estimated Glomerular Filt Rate > 60; Glucose 74 mg/dL (65-110); Potassium 3.8 mmol/L (3.4-5.0); Sodium 137 mmol/L (137-145)
== END 2023-04-19 19:15 | disposition home or self-care (01) ==
PROVIDERS: Emergency Medicine; Emergency Provider Physician Assistant; PCP Internal Medicine
DX: N30.90 Cystitis, unspecified without hematuria (principal)
CPT/HCPCS: 36415; 71045; 74177; 80053; 81001; 81025; 85025; 87086; 96374; 96375; 99284; J2270; J2405; Q9967

== ENCOUNTER 2023-08-20 10:06 | Outpatient (CLI) | payer OTHER, SELFPAY ==
[2023-08-20 10:30] LABS: Basophils Percent Auto 0.6 % (0.2-1.2); Eosinophils Absolute Auto 0.4 K/mm3 (0-0.3); Eosinophils Percent Auto 5.8 % (0-4.4); Hemoglobin 10.8 g/dL (12.0-15.0); Immature Granulocyte Absolute 0.02 K/mm3 (0.00-0.031); Immature Granulocyte Percent A 0.3 % (0-0.5); Lymphocytes Absolute Auto 1.86 K/mm3 (0.9-3.2); Lymphocytes Percent Auto 28.4 % (18.3-44.2); Mean Corpuscular HGB Conc 32.7 g/dl (32-36); Mean Corpuscular Hemoglobin 30.1 pg (26-34); Mean Corpuscular Volume 91.9 fl (80-100); Mean Platelet Volume 9.3 fl (7.4-10.4); Monocytes Absolute Auto 0.5 K/mm3 (0.1-0.6); Monocytes Percent Auto 6.9 % (2.6-8.5); Neutrophils Absolute Auto 3.8 K/mm3 (1.3-6.7); Platelet Count Result 212 k/mm3 (150-375); Red Blood Count 3.59 M/mm3 (4.2-5.4); Red Cell Distribution Width 14.6 % (11.5-14.5); White Blood Count 6.6 K/mm3 (4.5-10.0)
[2023-08-20 17:05] LABS: Alanine Aminotransferase 14 U/L (6-35); Albumin Level 4.3 g/dL (3.5-5.1); Alkaline Phosphatase 53 U/L (38-126); Anion Gap 9 mmol/L (8-16); Aspartate Amino Transferase 18 U/L (14-36); Bilirubin,Total 0.3 mg/dL (0.2-1.3); Blood Urea Nitrogen 9 mg/dL (7-17); Carbon Dioxide 24 mmol/L (22-30); Chloride 107 mmol/L (98-107); Estimated Glomerular Filt Rate > 60; Glucose 89 mg/dL (65-110); Potassium 3.9 mmol/L (3.4-5.0); Sodium 140 mmol/L (137-145)
[2023-08-20 17:30] LABS: Iron 39 ug/dL (37-170)
[2023-08-20 17:48] LABS: Percent Iron Saturation 10 % (20-50)
[2023-08-20 18:14] LABS: Folic Acid 11.6 ng/mL (2.76->20)
== END 2023-08-20 10:07 | disposition home or self-care (01) ==
PROVIDERS: PCP Internal Medicine; Visit Provider Internal Medicine Hematology & Oncology
DX: D64.9 Anemia, unspecified (principal)
CPT/HCPCS: 36415; 80053; 82607; 82728; 82746; 83540; 83550; 85025